=== PATIENT | female | born 1960 | race Caucasian/White ===

== ENCOUNTER 2017-09-21 10:59 | Emergency (ER) | payer OTHER ==
[~2017-09-21] VITALS: Ht 165.1 cm; Wt 78.8 kg
[2017-09-21 11:57] VITALS: BP 111/78
== END 2017-09-21 11:59 | disposition home or self-care (01) ==
LOC: EME 10:59
DX: R00.1 Bradycardia, unspecified (principal)
CPT/HCPCS: 80048; 84484; 85027; 93005; 99281; 99284